=== PATIENT | female | born 1965 | race Caucasian/White ===

== ENCOUNTER 2016-12-18 11:22 | Emergency (ER) | payer OTHER ==
[~2016-12-18] VITALS: Ht 154.9 cm; Wt 57.2 kg
[2016-12-18 11:26] VITALS: BP_SYST 130
[2016-12-18] MEDS ORDERED: DIPHENHYDRAMINE INJ 50 MG/ML VIAL IVP ONE (11:30)
[2016-12-18] MEDS ORDERED: ONDANSETRON HCL 4 MG/2 ML VIAL IVP ONE (11:30)
[2016-12-18] MEDS ORDERED: HYDROmorphone 2 MG/ML VIAL IVP ONE (11:30)
[2016-12-18] MEDS ORDERED: HYDROmorphone 1 MG INJ. 1 MG/ML AMPUL IVP ONE (13:00)
[2016-12-18] MEDS ORDERED: NACL 0.9% 1,000 ML IV ONE (13:45)
[2016-12-18 14:55] VITALS: BP_SYST 131
== END 2016-12-18 14:55 | disposition short-term general hospital (02) ==
LOC: SED 11:22
DX: S82.832A Other fracture of upper and lower end of left fibula, initial encounter for closed fracture (principal); S82.302A Unspecified fracture of lower end of left tibia, initial encounter for closed fracture; W19.XXXA Unspecified fall, initial encounter; Y93.02 Activity, running; Y92.89 Other specified places as the place of occurrence of the external cause; Y99.8 Other external cause status
CPT/HCPCS: 29515; 73590; 96361; 96374; 96375; 96376; 99285; J1170 ×2; J1200; J2405; J7030